=== PATIENT | male | born 1985 | race Caucasian/White ===

== ENCOUNTER 2019-10-02 10:56 | Emergency (ER) | payer BC ==
--- NOTE | 2019-10-02 11:33 | ED Physician Documentation ---
General Adult - HISTORIAN Historian: patient - HPI Stated Complaint: R ankle injury Chief Complaint: General Adult Onset: days ago (2) Timing: still present Severity: moderate Further Comments: yes (Pt is a 34 yo male who rolled his R ankle 2 days ago while roller skating. Pt has swelling of ankle, pain with weight bearing. Pt has surgical repair of R ankle at age 18.) - ROS CONST: no problems EYES/ENT: none CVS/RESP: none GI/: none MS/SKIN/LYMPH: other (R ankle injury) - PAST HX Past History: other (DM, ortho surgery) Allergies/Adverse Reactions: Allergies Allergy/AdvReac Type Severity Reaction Status Date / Time No Known Drug Allergies Allergy Unverified 11/07/12 11:05 Home Medications: Ambulatory Orders Medication Instructions Recorded Insulin Glargine,Hum.rec.anlog SQ QDAY 04/01/14 [Lantus] Insulin Lispro [Humalog] 100 unit SQ QDAY 04/01/14 - SOCIAL HX Smoking History: cigarettes (e-cigarettes) - FAMILY HX Family History: No - VITAL SIGNS Vital Signs: Vital Signs Temp Pulse Resp BP Pulse Ox 126/82 04/02/14 22:30 - REVIEWED ASSESSMENTS Nursing Assessment Reviewed: Yes Vitals Reviewed: Yes Progress - Progress Progress: X-ray R ankle: no fracture Pt declines Toradol crutches ankle splint NSAIDS Pt has his own crutches and splint General Adult Physical Exam - PHYSICAL EXAM GENERAL APPEARANCE: mild distress EENT: eye inspection normal NECK: normal inspection, supple RESPIRATORY: no resp distress, breath sounds normal CVS: reg rate & rhythm, heart sounds normal BACK: normal inspection SKIN: warm/dry, normal color EXTREMITIES: other (R ankle swelling, medial tenderness, inhibited range of motion) NEURO: oriented X3, motor nml, sensation nml Discharge Clincal Impression: Right ankle sprain Qualifiers: Encounter type: initial encounter Involved ligament of ankle: unspecified ligament Qualified Code(s): S93.401A - Sprain of unspecified ligament of right ankle, initial encounter Referrals: Kevin Kumar MD [Primary Care Provider] - Condition: Good Disposition: 01 HOME, SELF-CARE Decision to Admit: NO Decision Time: 12:08
--- NOTE | 2019-10-02 11:52 | Diagnostic Imaging Report ---
PATIENT MR#: [id number] PATIENT PATIENT NAME: MANUELA MCGILL DATE OF : 1985 REFERRING PHYSICIAN: Zaid Palmer EXAM DATE: 10/02/2019 ACCESSION NUMBER: [id number] EXAM DESCRIPTION: ANKLE 3 VIEWS OR MORE Left ankle History: Twisted ankle roller-skating Three views of the right ankle demonstrate a tract from a previous screw involving the medial malleol us. There is a chronic, rounded ossified density projecting adjacent to the anterior malleolus. No acute fracture s ite is noted. The talar dome and ankle mortise are intact. Impression: Chronic findings as described. No evidence for acute fracture or dislocation. Read by: Dr. Nunu Hoover Transcribed by: Transcribed Date: Electronically signed by: Dr. Nunu Hoover Date signed: 10/02/2019 11:51:49 AM
[2019-10-02 12:16] VITALS: BP 110/70
== END 2019-10-02 12:08 | disposition home or self-care (01) ==
LOC: ED 10:56
DX: S93.401A Sprain of unspecified ligament of right ankle, initial encounter (principal); X50.0XXA Overexertion from strenuous movement or load, initial encounter; Y93.51 Activity, roller skating (inline) and skateboarding
CPT/HCPCS: 73610; 99282; 99283